=== PATIENT | female | born 1980 | race Caucasian/White ===

== ENCOUNTER → 2017-05-19 | Outpatient (CLI) | payer BC ==
--- NOTE | 2017-05-19 15:58 | DIAGNOSTIC IMAGING REPORT ---
R KNEE 1 OR 2 VIEWS ROUTINE CLINICAL HISTORY: 37 years-old Female presenting with M70.60 Trochanteric bursitis, M25.551 right hip pain, M06.4 inflammation, concern for right knee arthritis, no history of injury. TECHNIQUE: Frontal and lateral views the right knee were obtained. COMPARISON: None. FINDINGS: No acute fracture or malalignment. Small knee joint effusion suspected. No advanced degenerative change. IMPRESSION: No advanced degenerative change though a small knee joint effusion is suspected. Electronically signed by: Amos Delatorre M.D. 05/19/2017 3:57 PM Dictated Date/Time: 05/19/2017 3:56 PM
--- NOTE | 2017-05-19 15:59 | DIAGNOSTIC IMAGING REPORT ---
L HAND MIN 3 VIEWS ROUTINE CLINICAL HISTORY: 37 years-old Female presenting with M70.60 Trochanteric [id number] Hip pain, onbaiI40.4 Inflamm, concern for arthritis. TECHNIQUE: Frontal, oblique, and lateral views left hand were obtained. COMPARISON: None. FINDINGS: No acute fracture or malalignment. No osteopenia. No erosions. No soft tissue abnormality. No advanced degenerative change. IMPRESSION: No osseous abnormality of the left hand. Electronically signed by: Amos Delatorre M.D. 05/19/2017 3:58 PM Dictated Date/Time: 05/19/2017 3:57 PM
--- NOTE | 2017-05-19 16:01 | DIAGNOSTIC IMAGING REPORT ---
L-SPINE MIN 4 VIEWS ROUTINE HISTORY: M70.60 Trochanteric [id number] Hip pain, fxsybH38.4 Inflamm COMPARISON: None. FINDINGS: There is no fracture. No subluxation. Disc spaces are preserved. IMPRESSION: No fracture or subluxation within the lumbar spine. The above report was generated using voice recognition software. It may contain grammatical, syntax or spelling errors. Electronically signed by: Daniel Stone M.D. 05/19/2017 4:00 PM Dictated Date/Time: 05/19/2017 3:56 PM
[2017-05-19 16:27] LABS: RHEUMATOID FACTOR < 10.0 U/mL (0-15); TOTAL IRON BINDING CAPACITY 361 mcg/dl (250-450)
== END | disposition home or self-care (01) ==
LOC: C.RAD1850 15:08
PROVIDERS: ATTEND Internal Medicine Rheumatology
DX: M06.4 Inflammatory polyarthropathy (principal); M25.551 Pain in right hip; M25.561 Pain in right knee; M25.562 Pain in left knee; M70.60 Trochanteric bursitis, unspecified hip

== ENCOUNTER → 2017-05-28 | Outpatient (CLI) | payer BC ==
[2017-05-28 12:05] LABS: HEMATOCRIT 41.1 % (37-47); MEAN CELL VOLUME 86.2 fL (80-100); MEAN CORPUSCULAR HEMOGLOBIN 28.7 pg (25-34); MEAN CORPUSCULAR HGB CONC 33.3 g/dl (32-36); MEAN PLATELET VOLUME 11.8 fL (7.4-10.4); PLATELET COUNT 226 K/uL (130-400); RED BLOOD COUNT 4.77 M/uL (4.2-5.4); WHITE BLOOD COUNT 7.42 K/uL (4.8-10.8)
[2017-05-28 12:29] LABS: THYROID STIMULATING HORMONE 0.086 uIu/ml (0.300-4.500)
== END | disposition home or self-care (01) ==
LOC: C.LAB1850 10:53
PROVIDERS: ATTEND Obstetrics & Gynecology
DX: N92.0 Excessive and frequent menstruation with regular cycle (principal)

== ENCOUNTER → 2017-08-20 | Outpatient (CLI) | payer BC | END | disposition home or self-care (01) | LOC: C.RDSM 13:58 | PROVIDERS: ATTEND Family Medicine Sports Medicine | DX: M25.551 Pain in right hip (principal); M25.552 Pain in left hip; Z88.0 Allergy status to penicillin; Z88.1 Allergy status to other antibiotic agents ==